=== PATIENT | female | born 1950 | race Caucasian/White ===

== ENCOUNTER 2021-02-17 23:08 | Emergency (ER) | payer MEDICARE ==
[~2021-02-17] VITALS: Ht 160 cm; Wt 68.1 kg
[2021-02-17 23:17] VITALS: BP 173/75
--- NOTE | 2021-02-17 23:24 | NUR ---
EKG IN TRIAGE
--- NOTE | 2021-02-18 00:09 | NUR ---
PT WHEELED TO ROOM, AND PLACED IN GURNEY ON O2 SAT PROBE AND BP CUFF. PT CALM AND COOPERATIVE AND ALSO C/O MILD UPPER BACK PAIN, STATES IT IS MID SCAPULA.
[2021-02-18] MEDS ORDERED: LIDODERM 5% PATCH TD ONE ×2 (00:23→00:30)
[2021-02-18 00:39] LABS: BASOPHILS % (AUTO) 1 % (0-1); EOSINOPHILS % (AUTO) 3 % (1-7); LYMPHOCYTES % (AUTO) 9 % (22-44); MEAN CORPUSCULAR HEMOGLOBIN 30.9 pg (27.0-34.8); MEAN CORPUSCULAR HGB CONC 34.6 g/dL (32.4-35.8); MEAN PLATELET VOLUME 7.7 fL (7.4-10.4); MONOCYTES % (AUTO) 4 % (2-9); NEUTROPHILS % (AUTO) 84 % (42-75); PLATELET COUNT 226 x10^3/uL (130-400); RED BLOOD COUNT 4.84 x10^6/uL (3.82-5.3)
[2021-02-18 00:46] LABS: ALANINE AMINOTRANSFERASE 33 U/L (12-78); ALBUMIN 3.9 g/dL (3.4-5.0); ANION GAP 4 mmol/L (5-15); CALCIUM 8.6 mg/dL (8.5-10.1); CHLORIDE 109 mmol/L (98-107); CREATININE 0.81 mg/dL (0.55-1.02)
[2021-02-18 00:50] LABS: ALKALINE PHOSPHATASE 96 U/L (45-117); BILIRUBIN,TOTAL 0.5 mg/dL (0.2-1.0); TOTAL PROTEIN 7.2 g/dL (6.4-8.2); TROPONIN I < 0.015 ng/mL (0.000-0.045)
--- NOTE | 2021-02-18 00:52 | NUR ---
LIDODERM PATCH PLACED ON MID SCAPULA AREA, AND PT TOLERATED WELL. LABS DRAWN AND PORTABLE CHEST XRAY DONE.
== END 2021-02-18 01:40 | disposition home or self-care (01) ==
LOC: ED 23:45
DX: S29.012A Strain of muscle and tendon of back wall of thorax, initial encounter (principal); M62.830 Muscle spasm of back; E78.5 Hyperlipidemia, unspecified; R94.31 Abnormal electrocardiogram [ECG] [EKG]; X58.XXXA Exposure to other specified factors, initial encounter; Y93.89 Activity, other specified; Y92.89 Other specified places as the place of occurrence of the external cause; Y99.8 Other external cause status
CPT/HCPCS: 36415; 71045; 80053; 84484; 85025; 93005; 99285